=== PATIENT | male | born 1995 | race Caucasian/White ===

== ENCOUNTER 2022-10-25 15:16 | Emergency (ER) | payer OTHER, SELFPAY ==
--- NOTE | ~2022-10-25 | XR_ITS ---
EXAMINATION: XR wrist LT min 3V DATE: 10/25/2022 16:12 INDICATION: Left wrist pain. Fall. TECHNIQUE: 4 views of left wrist were obtained. COMPARISON: None. FINDINGS: Bone alignment is normal. There is a nondisplaced fracture of distal radius with involvemen t of the distal articular surface. Ulnar styloid is intact. Joint spaces are well maintained. IMPRESSION: 1. Nondisplaced fracture of distal radius. Reviewed, dictated and finalized at location E.
--- NOTE | ~2022-10-25 | XR_ITS ---
EXAMINATION: XR shoulder RT min 2V DATE: 10/25/2022 16:14 INDICATION: Right shoulder pain. Fall. TECHNIQUE: 3 views of right shoulder were obtained. COMPARISON: None. FINDINGS: Bone alignment is normal. No fracture. Glenohumeral joint is normal. There is mild acromioc lavicular joint osteoarthritis. IMPRESSION: 1. Mild right acromioclavicular joint osteoarthritis. Reviewed, dictated and finalized at location E.
--- NOTE | ~2022-10-25 | XR_ITS ---
EXAMINATION: XR forearm RT 2V, XR wrist RT min 3V DATE: 10/25/2022 16:12 INDICATION: Right wrist and forearm pain post fall TECHNIQUE: 1. AP an lateral views of the right forearm were obtained. 2. Dorsal palmar, lateral and oblique views of the right wrist were obtained. COMPARISON: none FINDINGS: Alignment is normal at the right elbow, wrist and visualized hand. 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 Subtle increased angulation at the right radial head neck junction and subtle irregu larity to the contralateral the rim of the articular surface which suggests possibility of an age-ind eterminate fracture. No evident elbow joint effusion. No other lesions suspicious for acute fracture identified. Joint spaces are normal. IMPRESSION: 1. Possible age-indeterminate fracture at the right radial head neck junction. Correlate for point te nderness at this location and consider dedicated right elbow radiographs. 2. Chronic nonunited avulsion fracture fragment at the ulnar styloid process. No acute osseous abnorm ality at the right wrist or visualized hand. Reviewed, dictated and finalized at location A. IMPRESSION: 1. Possible age-indeterminate fracture at the right radial head neck junction. Correlate for point tenderness at this location and consider dedicated right el bow radiographs. 2. Chronic nonunited avulsion fracture fragment at the ulnar styloid process. N o acute osseous abnormality at the right wrist or visualized hand.
--- NOTE | ~2022-10-25 | XR_ITS ---
EXAMINATION: XR elbow RT min 3V DATE: 10/25/2022 16:54 INDICATION: Right elbow pain. TECHNIQUE: 4 views of right elbow were obtained. COMPARISON: None. FINDINGS: There is a nondisplaced intra-articular fracture of radial head. Joint spaces are normal. T here is an elbow joint effusion. IMPRESSION: 1. Nondisplaced radial head fracture. 2. Elbow joint effusion. Reviewed, dictated and finalized at location E.
--- NOTE | ~2022-10-25 | XR_ITS ---
EXAMINATION: XR humerus RT DATE: 10/25/2022 16:15 INDICATION: Pain throughout the right humerus post fall TECHNIQUE: 2 views of the right humerus were obtained with attempted internal and external rotation. COMPARISON: None. FINDINGS: There is limited difference in the plane of projection which limits sensitivity. Alignment is normal. There appears be a nondisplaced intra-articular fracture along the rim of the radial head. No eviden t fracture the humerus or at the right shoulder. Joint spaces appear normal. IMPRESSION: 1. Suggestion of a nondisplaced intra-articular fracture along the margin of the right radial head. 2. Assessment of the humerus limited by lack of a true orthogonal plane of imaging with minimal diffe rence in the plane of projection of the internally and externally rotated views. Proximally an orthog onal plane of imaging was obtained on the shoulder radiographs. In the absence of orthogonal imaging distally could be addressed along with more definitive assessment for the suspected radial head fract ure with dedicated right elbow radiographs including a standard lateral projection. Reviewed, dictated and finalized at location A. IMPRESSION: 1. Suggestion of a nondisplaced intra-articular fracture along the margin of th e right radial head. 2. Assessment of the humerus limited by lack of a true orthogonal plane of imag ing with minimal difference in the plane of projection of the internally and ex ternally rotated views. Proximally an orthogonal plane of imaging was obtained on the shoulder radiographs. In the absence of orthogonal imaging distally coul d be addressed along with more definitive assessment for the suspected radial h ead fracture with dedicated right elbow radiographs including a standard latera l projection.
--- NOTE | ~2022-10-25 | XR_ITS ---
EXAMINATION: [id number] DATE: 10/25/2022 16:29 INDICATION: Right chest pain. Fall from ten feet. TECHNIQUE: A frontal view of the chest and 2 views on 3 radiographs of the right ribs were obtained. COMPARISON: None. FINDINGS: The chest demonstrates clear lungs without pneumonia, pleural effusion, or pneumothorax. Th e heart size is normal. IMPRESSION: 1. No rib fracture. Reviewed, dictated and finalized at location E. IMPRESSION: 1. No rib fracture.
--- NOTE | ~2022-10-25 | CT_ITS ---
EXAMINATION: CT brain wo con DATE: 10/25/2022 16:11 INDICATION: Head injury. TECHNIQUE: Computed tomography (CT) of the head was performed without intravenous contrast. The mA wa s adjusted according to patient size. Iterative reconstruction technique was employed. The dose-lengt h product was 605.33 mGy-cm. COMPARISON: None FINDINGS: There is no intracranial hemorrhage, acute infarction, or abnormal intracranial mass lesion . The ventricles are normal in size. The paranasal sinuses are clear. The mastoid air cells are akiko l. The orbits are normal. IMPRESSION: 1. Normal brain. Reviewed, dictated and finalized at location E. IMPRESSION: 1. Normal brain.
[2022-10-25 15:21] VITALS: BP 128/76; PULSE 56; RESP 20; TEMP 36.3; O2SAT 99
--- NOTE | 2022-10-25 15:38 | ED.GENADULT ---
HPI - General Adult General Chief complaint: Fall Stated complaint: eyebrow lac; right shoulder and arm, left wrist Time Seen by Provider: 10/25/22 15:23 History of Present Illness HPI narrative: The patient is a 27-year-old male who was approximately 10 ft above the ground on an 18 [employer] loading still, whereby he tripped and fell down 10 ft. He had a hard hat on, work boots and jeans. He struck the ground with his right upper extremity. He complains of pain from the right shoulder to the right wrist but is able to move all the joints in the right arm. Who complains of left wrist pain and upper chest wall pain on the right. No loss of consciousness. The heart had caused 2 superficial lacerations, 1 through the right eyebrow and 1 inferior to the right eyebrow each feel mm. No visual changes. No loss of consciousness. No headache. No neck pain or back pain. No pain in the left upper or lower extremity except the left wrist. No pain in the right lower extremity. No abdominal pain. No other complaints. Tetanus UTD Past medical history notable for kyphosis. Scoliosis. Related Data Allergies Allergy/AdvReac Type Severity Reaction Status Date / Time No Known Allergies Allergy Verified 10/25/22 15:33 Review of Systems Review of Systems: All systems reviewed & are unremarkable except as noted in HPI and below Constitutional: Constitutional: Denies chills, Denies excessive sweating, Denies fatigue, Denies fever(s), Denies headache(s) and Denies weakness Eyes: Eyes: Denies change in vision and Denies photophobia ENT: Denies dysphagia, Denies dizziness, Denies headache(s), Denies lip swelling, Denies nasal congestion, Denies sore throat and Denies tongue swelling Cardiovascular: Cardiovascular: Reports chest pain (at right upper anterior rib cage only), Denies syncope, Denies rapid heart rate and Denies dyspnea Respiratory: Respiratory: Denies cough, Denies dyspnea and Denies wheezing Gastrointestinal: Gastrointestinal: Denies abdominal pain, Denies constipation, Denies dysphagia, Denies diarrhea, Denies nausea and Denies vomiting Genitourinary: Genitourinary: Denies hematuria, Denies dysuria, Denies urinary frequency and Denies urinary urgency Musculoskeletal: Musculoskeletal: Denies back pain, Denies myalgias, Denies arthralgias, Denies joint swelling and Denies numbness Comments: Pain as in HPI: R shoulder to R wrist, L wrist. Integumentary/Breasts: Skin/Breast: Denies pruritus, Denies erythema and Denies rash Neurologic: Denies confusion, Denies dizziness, Denies syncope, Denies headache(s), Denies focal weakness, Denies numbness and Denies weakness Psychiatric: Psychiatric: Denies anxiety and Denies confusion Endocrine: Endocrine: Denies excessive sweating and Denies fatigue Hematologic/Lymphatic: Hematologic/Lymphatic: Denies easy bleeding and Denies easy bruising Allergic/Immunologic: Allergic/Immunologic: Denies lip swelling, Denies tongue swelling and Denies wheezing Exam Const: General: healthy appearing, no acute distress, alert and well nourished Nutritional Appearance: well nourished Orientation/consciousness: patient oriented x3 Limitations: no limitations HENMT: Head: normal to inspection Ears: external ears normal Face/Nose/Sinus: normal facial exam Face and sinus: normal facial exam Mouth: Yes moist mucous membranes Throat: posterior oropharynx normal Other: No facial bony tenderness. No scalp abrasions or hematomas. Eyes: Conjunctivae: conjunctivae normal Pupils: Equal, round and reactive pupils present EOM: EOMs intact bilaterally Other: There are two lacerations (superficial) at right eyebrow: one is 5 mm, through the right eyebrow, with avulsion of the eyebrow hairs superior to the laceration. the second is 3 mm, between the right eyebrow and the right upper eyelid, laterally. No facial bony tenderness. No entrapment. Neck: Neck: normal visual inspection and no mening
[2022-10-25] MEDS: ACETAMINOPHEN 500 MG TABLET 1000 MG PO (15:43)
[2022-10-25] MEDS: IBUPROFEN 400 MG TABLET 800 MG PO (15:44)
[2022-10-25] MEDS: traMADol HCL (*CRX) 50 MG TABLET 100 MG PO (16:57)
[2022-10-25 17:42] VITALS: BP 120/72; PULSE 60; RESP 20; TEMP 36.8; O2SAT 99
== END 2022-10-25 17:43 | disposition home or self-care (01) ==
PROVIDERS: Emergency Provider Emergency Medicine
DX: S52.572A Other intraarticular fracture of lower end of left radius, initial encounter for closed fracture (principal); S52.124A Nondisplaced fracture of head of right radius, initial encounter for closed fracture; S01.111A Laceration without foreign body of right eyelid and periocular area, initial encounter; T14.8XXA Other injury of unspecified body region, initial encounter; W17.89XA Other fall from one level to another, initial encounter
CPT/HCPCS: 29125; 70450; 71101; 73030; 73060; 73080; 73090; 73110; 99284; A4565; A9270